=== PATIENT | male | born 1955 | race Caucasian/White ===

== ENCOUNTER → 2017-08-20 07:02 | Outpatient (CLI) | payer OTHER, SELFPAY ==
[2017-08-20 08:42] LABS: Add Manual Diff / Slide Review NO; Basophils Percent Auto 0.4 % (0-2); Eosinophils Percent Auto 2.1 % (2-4); Hemoglobin 15.3 g/dL (13.5-17.5); Lymphocytes Percent Auto 34.1 % (25-40); Mean Corpuscular HGB Conc 33.2 % (30-36); Mean Corpuscular Hemoglobin 31.5 PG (26-34); Mean Corpuscular Volume 94.7 fL (80-100); Monocytes Percent Auto 9.2 % (3-14); Neutrophils Absolute Auto 3700 /uL (3000-5900); Neutrophils Percent Auto 54.2 % (50-75); Platelet Count 191 X10^3/uL (150-400); Red Blood Cell Count 4.86 X10^6/uL (4.5-5.9); Red Cell Distribution Width 14.2 % (11.6-14.8); White Blood Cell Count 6.9 X10^3/uL (4.5-11.0)
[2017-08-20 08:55] LABS: Alanine Aminotransferase 33 IU/L (21-72); Albumin 4.4 g/dL (3.5-5.0); Albumin Globulin Ratio 1.5 (1.0-2.8); Alkaline Phosphatase 61 U/L (38-126); Aspartate Aminotransferase 42 IU/L (17-59); Bilirubin Total 0.5 mg/dL (0.2-1.3); Calcium 9.4 mg/dL (8.4-10.2); Cholesterol 181 mg/dL (140-199); Estimated Glomerular Filt Rate > 60.0 mL/min (>60); Glucose 100 mg/dL (80-110); HDL Cholesterol 68 mg/dL (40-60); HEMOLYSIS < 15 (0-50); LDL Cholesterol Calculated 101 mg/dL (<100); Potassium 4.8 mmol/L (3.4-5.1); Sodium 138 mmol/L (137-145); Total Protein 7.4 g/dL (6.3-8.2); Triglycerides 58 mg/dL (35-150)
[2017-08-20 09:20] LABS: Thyroid Stimulating Hormone 2.58 uIU/mL (0.47-4.68)
== END ==
PROVIDERS: PCP Family Medicine; Visit Provider Family Medicine
DX: Z00.00 Encounter for general adult medical examination without abnormal findings (principal)
CPT/HCPCS: 36415; 80053; 80061; 84153; 84443; 85025

== ENCOUNTER 2017-12-31 12:08 | Emergency (ER) | payer OTHER, SELFPAY ==
[2017-12-31 12:15] VITALS: BP 189/86; PULSE 50; RESP 16; TEMP 36.1; O2SAT 100
--- NOTE | 2017-12-31 12:20 | DI.RAD.S_ITS ---
PROCEDURE: XR CHEST 1V INDICATIONS: chest pain, congestion TECHNIQUE: One view of the chest was acquired. COMPARISON: None. FINDINGS: Surgical changes and devices: None. Lungs and pleura: No pleural effusions or pneumothorax. Lungs are clear. Mediastinum: Mediastinal contours appear normal. Heart size is normal. Bones and chest wall: No suspicious bony lesions. Overlying soft tissues appear unremarkable. IMPRESSION: No acute disease. Dictated by: Drew Kennedy M.D. on 12/31/2017 at 13:31 Approved by: Drew Kennedy M.D. on 12/31/2017 at 13:32
[2017-12-31] MEDS: ASPIRIN 81 MG TAB 324 MG PO (12:47)
[2017-12-31] MEDS: SODIUM CHLORIDE 0.9% 1,000 ML 150 ML IV (12:47)
--- NOTE | 2017-12-31 12:51 | PC.NURSE ---
pt states he feel congested since this morning. denies pain at this time. Just sternal pressure provider aware. no new orders at this time.
[2017-12-31 13:00] VITALS: BP 153/79; PULSE 53; RESP 16; O2SAT 100
[2017-12-31 13:00] LABS: Add Manual Diff / Slide Review NO; Basophils Percent Auto 0.5 % (0-2); Eosinophils Percent Auto 1.3 % (2-4); Hematocrit 48.2 % (41-53); Hemoglobin 16.3 g/dL (13.5-17.5); Lymphocytes Percent Auto 18.3 % (25-40); Mean Corpuscular HGB Conc 33.8 % (30-36); Mean Corpuscular Volume 94.6 fL (80-100); Monocytes Percent Auto 7.9 % (3-14); Neutrophils Absolute Auto 5800 /uL (3000-5900); Platelet Count 195 X10^3/uL (150-400); Red Blood Cell Count 5.09 X10^6/uL (4.5-5.9); Red Cell Distribution Width 14.5 % (11.6-14.8); White Blood Cell Count 8.1 X10^3/uL (4.5-11.0)
--- NOTE | 2017-12-31 13:03 | ED_ITS ---
HPI - Arrhythmia/Palpitations General Chief Complaint: Arrhythmia/Palpitations Stated Complaint: IRREGULAR EKG Time Seen by Provider: 12/31/17 12:19 Source: patient and family Mode of arrival: ambulatory Limitations: no limitations History of Present Illness HPI narrative: 62-year-old male, otherwise quite healthy presents with his for the evaluation of a few months worth of anterior chest pressure. He was seen and evaluated the walk-in clinic and sent here for a more prompt evaluation. The patient has had this anterior chest pressure since October and denies any provocation, palliation or radiation. He denies any history of cardiac illness and recently returned from [place] and hiked multiple 1000 the feet daily without any worsening or change of his symptoms. Though his chest pressure has been present for quite some time what brought him in today is while checking his blood pressure he detected a few palpitations. He cannot feel the palpitations while at rest and does not notice them. He is not dizzy nor weak or lightheaded. He denies any shortness of breath, diaphoresis nor nausea or vomiting. He is completely asymptomatic right now MD complaint: palpitations Onset (ago): month(s) Duration: now resolved Severity: mild Context: occurred during rest Associated symptoms: chest pain Related Data Home Medications Medication Instructions Recorded Confirmed aspirin 81 mg PO Q DAY #0 11/06/10 12/31/17 Previous Rx's Medication Instructions Recorded metoprolol tartrate 50 mg tablet 50 mg PO BID #180 tab 10/02/17 simvastatin 10 mg tablet 10 mg PO HS #90 tab 10/02/17 tamsulosin 0.4 mg capsule 0.4 mg PO QDAY #90 cap 10/02/17 Allergies Allergy/AdvReac Type Severity Reaction Status Date / Time KAYLYNN Inhibitors Allergy Unknown COUGH Unverified 12/31/17 11:24 [KAYLYNN INHIBITORS] Review of Systems Review of Systems All systems reviewed & are unremarkable except as noted in HPI and below Constitutional Denies chills, Denies fever(s), Denies lethargy and Denies weakness Eyes Denies change in vision, Denies eye discharge, Denies irritation and Denies loss of vision ENT Ears, Nose, Mouth, and Throat: Denies change in voice, Denies neck pain and Denies sore throat Cardiovascular Denies chest pain, Denies irregular heart rhythm, Denies lightheadedness, Reports palpitations, Denies dyspnea, Denies dyspnea on exertion and Denies orthopnea Respiratory Denies cough, Denies dyspnea, Denies dyspnea on exertion and Denies wheezing Gastrointestinal Gastrointestinal: Denies abdominal pain, Denies change in bowel habits, Denies diarrhea, Denies nausea and Denies vomiting Genitourinary Denies hematuria, Denies flank pain, Denies urinary incontinence and Denies urinary urgency Musculoskeletal Denies neck pain Integumentary/Breasts Denies pruritus, Denies erythema, Denies rash and Denies wounds Neurologic Denies confusion, Denies loss of vision and Denies weakness Psychiatric Denies anxiety, Denies confusion, Denies depression, Denies homicidal ideation and Denies suicidal ideation Endocrine Reports palpitations Hematologic/Lymphatic Denies easy bruising Allergic/Immunologic Denies wheezing [facility] Medical History BPH (benign prostatic hyperplasia) (Chronic ~2013) Elevated PSA (Chronic ~2007) Hyperlipidemia (Chronic) Hypertension (Chronic ~2007) Tinnitus (Chronic ~2009) Chicken pox (Resolved) Measles (Resolved) Mumps (Resolved) Surgical History Anesthesia (Resolved) History of prostate biopsy (Resolved ~2014) Status post colonoscopy (~2006) Family History Brother Age: 69 Hypertension High cholesterol Father Hypertension Parkinson's disease Mother Hypertension Stroke Grandmother Stroke Grandfather No problems noted. Grandmother No problems noted. Social History Smoking Status: Never smoker Exam Narrative Exam Narrative: GENERAL: This is a well-nourished, well-developed patient, in mild distress. HEAD: Atraumatic. Normocephalic. No temporal or scalp tenderness. EYES: Pupils equal round and reactive. Extraocular motions intact. No scleral icterus. No injection or drainage. ENT: Nose without bleeding, purulent drainage or septal hematoma. Throat without erythema, tonsillar hypertrophy or exudate. Uvula midline. Airway patent. NECK: Trachea midline. No JVD or lymphadenopathy. Supple, nontender, no meningeal signs. CARDIOVASCULAR: Regular rate and rhythm without murmurs, gallops, or rubs. RESPIRATORY: Clear to auscultation. Breath sounds equal bilaterally. No wheezes , rales, or rhonchi. GASTROINTESTINAL: Abdomen soft, non-tender, nondistended. No hepato-splenomegaly , or palpable masses. No guarding. EXTREMITIES: No clubbing, cyanosis, or edema. No joint tenderness, effusion, or edema noted. BACK: Nontender without deformity or crepitance. No flank tenderness. NEURO: AOx3. SKIN: No rash or erythema. Initial Vital Signs Initial Vital Signs: Vital Signs Temperature 97.0 F L 12/31/17 12:15 Pulse Rate 50 L 12/31/17 12:15 Respiratory Rate 16 12/31/17 12:15 Blood Pressure 189/86 H 12/31/17 12:15 Pulse Oximetry 100 12/31/17 12:15 Scores HEART Score Heart Score history: Slightly Suspicious Heart Score EKG: Normal Heart Score Age: 45-64 years old Heart Score risk factors: No known risk factors Heart Score troponin: < or = to normal limit Heart Score Total: 1 Wells' Criteria for PE Clinical signs and symptoms of PE: No PE is #1 Dx or equally likely: No Heart rate > 100: No Immobilization at least 3 days or surg in previous 4 weeks: No History of PE or DVT: No Hemoptysis: No Malignancy w/Treatment within 6 months or palliative: No Wells' PE Score total: 0 Course Orders Ordered: ED Orders 12/31/17 12:20 XR chest 1V Stat 12/31/17 12:27 EKG-12 Lead Stat 12/31/17 12:43 Complete Blood Count AUTO DIFF Stat Comprehensive Metabolic Panel Stat Lipase Stat Troponin & CK Cardiac Panel Stat Discontinued Medications Aspirin (Aspirin Chew) 324 mg PO NOW ONE Stop: 12/31/17 12:20 Last Admin: 12/31/17 12:47 Dose: 324 mg Sodium Chloride (Normal Saline 0.9%) 1,000 mls @ 150 mls/hr IV CONT NANCY Last Infusion: 12/31/17 14:30 Dose: 0 mls/hr Admin: 12/31/17 12:47 Dose: 150 mls/hr Vital Signs - 8 hr 12/31/17 13:39 12/31/17 14:09 12/31/17 14:28 Pulse Rate 53 L 60 56 L Respiratory Rate 20 17 Blood Pressure 147/82 H Blood Pressure [Right Arm] 146/79 H 147/82 H Pulse Oximetry 100 100 100 MDM - Arrhythmia/Palpitations Lab Data Result diagrams: 12/31/17 12:43 12/31/17 12:43 Lab Results 12/31/17 12/31/17 Range/Units 12:43 12:43 WBC 8.1 (4.5-11.0) X10^3/uL RBC 5.09 (4.5-5.9) X10^6/uL Hgb 16.3 (13.5-17.5) g/dL Hct 48.2 (41-53) % MCV 94.6 (80-100) fL MCH 32.0 (26-34) PG MCHC 33.8 (30-36) % RDW 14.5 (11.6-14.8) % Plt Count 195 (150-400) X10^3/uL Neut % (Auto) 72.0 (50-75) % Lymph % (Auto) 18.3 L (25-40) % [place] % (Auto) 7.9 (3-14) % Eos % (Auto) 1.3 L (2-4) % Baso % (Auto) 0.5 (0-2) % Neut # (Auto) 5800 (3588-1546) /uL Sodium 138 (137-145) mmol/L Potassium 4.8 (3.4-5.1) mmol/L Chloride 99 (98-107) mmol/L Carbon Dioxide 27 (22-32) mmol/L BUN 15 (9-20) mg/dL Creatinine 0.90 (0.66-1.25) mg/dL Estimated GFR > 60.0 (>60) mL/min BUN/Creatinine Ratio 16.7 (6-22) Glucose 95 (80-110) mg/dL Calcium 9.4 (8.4-10.2) mg/dL Total Bilirubin 1.0 (0.2-1.3) mg/dL AST 36 (17-59) IU/L ALT 35 (21-72) IU/L Alkaline Phosphatase 64 (38-126) U/L Total Creatine Kinase 50 L (55-170) U/L CK-MB (CK-2) TNP CK-MB (CK-2) Rel Index TNP Troponin I < 0.012 (0.01-0.034) ng/mL Total Protein 7.9 (6.3-8.2) g/dL Albumin 4.9 (3.5-5.0) g/dL Globulin 3.0 (1.7-4.1) g/dL Albumin/Globulin Ratio 1.6 (1.0-2.8) Lipase 88 (23-300) U/L Discharge Plan Departure Patient Disposition: Home Clinical Impression: Palpitations Discharge Date/Time: 12/31/17 14:29 Interventions: ED Discharge Assessment Last Done: 12/31/17 14:28 Instructions: DI for Arrhythmias Activity Restrictions/Additional Instructions: *You have been diagnosed with [ mild hypertension, palpitations ] *What to do: *Take medications as directed *Follow up with your primary care provider in 2-3 days, call for an appointment. Let them know you were seen in the Emergency Department and that we ask that you be seen in follow up *Return to ER if you should have any new, worsening or concerning symptoms Prescriptions: No Action aspirin 81 mg Tablet,Delayed Release (Dr/Ec) 81 mg PO Q DAY Qty: 0 RF: 0 metoprolol tartrate 50 mg tablet 50 mg PO BID Qty: 180 RF: 3 simvastatin [Zocor] 10 mg tablet 10 mg PO HS Qty: 90 RF: 3 tamsulosin [Flomax] 0.4 mg capsule,extended release 24hr 0.4 mg PO QDAY Qty: 90 RF: 3 Referrals: Rj Naylor MD [Primary Care Provider] -
[2017-12-31 13:14] LABS: Alanine Aminotransferase 35 IU/L (21-72); Albumin 4.9 g/dL (3.5-5.0); Albumin Globulin Ratio 1.6 (1.0-2.8); Alkaline Phosphatase 64 U/L (38-126); Aspartate Aminotransferase 36 IU/L (17-59); BUN Creatinine Ratio 16.7 (6-22); Blood Urea Nitrogen 15 mg/dL (9-20); Calcium 9.4 mg/dL (8.4-10.2); Carbon Dioxide 27 mmol/L (22-32); Chloride 99 mmol/L (98-107); Creatine Kinase 50 U/L (55-170); Estimated Glomerular Filt Rate > 60.0 mL/min (>60); Glucose 95 mg/dL (80-110); HEMOLYSIS 29 (0-50); Lipase 88 U/L (23-300); Potassium 4.8 mmol/L (3.4-5.1); Sodium 138 mmol/L (137-145); Total Protein 7.9 g/dL (6.3-8.2)
[2017-12-31 13:28] LABS: Troponin I < 0.012 ng/mL (0.01-0.034)
[2017-12-31 13:39] VITALS: BP 146/79; PULSE 53; RESP 20; O2SAT 100
[2017-12-31 14:09] VITALS: BP 147/82; PULSE 60; O2SAT 100
[2017-12-31 14:28] VITALS: BP 147/82; PULSE 56; RESP 17; O2SAT 100
== END 2017-12-31 14:29 | disposition home or self-care (01) ==
PROVIDERS: Emergency Provider Emergency Medicine; Family Provider Family Medicine; PCP Family Medicine
DX: R00.2 Palpitations (principal)
CPT/HCPCS: 36591; 71045; 80053; 82550; 83690; 84484; 85025; 93005; 96360; 96361; 99283; 99285

== ENCOUNTER → 2018-01-12 08:24 | Outpatient (CLI) | payer OTHER, SELFPAY ==
--- NOTE | 2018-01-12 10:48 | DI.ECHO.S_ITS ---
Echocardiogram Report + + :Name: ZACK MALDONADO Study Date: 01/12/2018 Height: 73 in : :[facility] Exam Location: [facility] Weight: 180 lb : : Gender: Male BSA: 2.1 m2 : :: 1955 Age: 62 yrs BP: 140/80 mmHg: :Reason For Study: PALPITATIONS : :Ordering Physician: Dr. De La Rosa : :[place] Performed By: Kaylyn Gandhi : :Referring: ALFIE FIORE : + + Interpretation Summary The left ventricle is normal in size, wall thickness, and systolic function without any focal wall motion abnormalities. The ejection fraction is estimated to be 55-60%. The right ventricle is normal in size and function. There is mild prolapse of the posterior mitral valve leaflet(s). -Overall this echo shows normal bivntricular function. There is mild prolapse of the posterior mitral valve which can be the underlying cause of patient's palpitations. Procedure: A two-dimensional transthoracic echocardiogram with color flow and Doppler was performed. The study quality was technically adequate. Most of the acoustic windows were suboptimal, but the best imaging was obtained from the subcostal window. The patient was in normal sinus rhythm during the exam. Left Ventricle: The left ventricle is normal in size, wall thickness, and systolic function without any focal wall motion abnormalities. The ejection fraction is estimated to be 55-60%. Diastolic parameters suggest a relaxation abnormality of the left ventricle, consistent with probable normal filling pressures. Right Ventricle: The right ventricle is normal in size and function. TAPSE 2.6 cm. Atria: The left atrium is mildly dilated. Right atrial size is normal. There is no Doppler evidence for an interatrial shunt. Mitral Valve: The mitral valve is normal. There is prolapse of the posterior mitral valve leaflet(s). There is trace mitral regurgitation. Aortic Valve: The aortic valve is normal in structure and function. There is no aortic valve stenosis. No aortic regurgitation is present. Tricuspid Valve: The tricuspid valve is normal. There is trace tricuspid regurgitation. The right ventricular systolic pressure is estimated to be at least 23 mmHg based on an estimated right atrial pressure of 3 mm Hg. Pulmonic Valve: The pulmonic valve is not well seen, but is grossly normal. There is trace pulmonic regurgitation. Great Vessels: The aortic root is borderline dilated. The ascending aorta is at the upper limits of normal in size. The aortic arch is normal in size. The pulmonary artery is normal size. The IVC is of normal diameter and collapses greater than 50% with a sniff. This suggests a low right atrial pressure of 3 mm Hg. Pericardium/ Pleura There is no pericardial effusion. There is no pleural effusion. MMode/2D Measurements & Calculations LVIDd: 4.7 cm LVOT diam: 2.4 cm LVIDs: 2.7 cm Ao root diam: 3.9 cm FS: 41.8 % asc Aorta Diam: 3.6 cm EPSS: 0.25 cm Ao Arch Diam (Prox Trans): 2.8 cm IVSd: 0.99 cm LVPWd: 0.96 cm LV rosenthal. diameter/BSA (cm/m^2): 2.3 LV sys. diameter/BSA (cm/m^2): 1.3 LA A2 area: 24.5 cm2 RA long axis: 5.0 cm LA A4 area: 20.0 cm2 RA area: 18.4 cm2 LA length (vol): 4.7 cm RA vol: 57.4 ml LA vol: 88.9 ml RA : 27.9 ml/m2 LA vol index: 43.2 ml/m2 IVC diam: 1.5 cm RVD1 (basal): 4.0 cm RVD2 (mid): 2.9 cm TAPSE: 2.6 cm Doppler Measurements & Calculations Ao V2 max: 102.4 cm/sec LVOT Max Dickson: 83.3 cm/sec Ao V2 mean: 71.9 cm/sec LV V1 max P.8 mmHg Ao max P.2 mmHg LV V1 VTI: 18.1 cm Ao mean P.3 mmHg SVETLANA(I,D): 3.9 cm2 Ao V2 VTI: 21.1 cm SVETLANA(V,D): 3.7 cm2 sev ratio: 0.86 SVETLANA indexed to BSA (cm^2/m^2): 1.9 MV E max dickson: 72.9 cm/sec TR max dickson: 225.6 cm/sec MV A max dickson: 66.1 cm/sec TR max P.4 mmHg MV E/A: 1.1 PA V2 max: 73.2 cm/sec Med Peak E' Dickson: 7.4 cm/sec PA V2 mean: 52.2 cm/sec E/E' med: 9.8 PA mean P.2 mmHg Lat Peak E' Dickson: 9.7 cm/sec PA pr(Accel): 21.6 mmHg E/E' lat: 7.5 E/e' average: 8.7 MV dec time: 0.20 sec MV P1/2t: 60.4 msec MV P1/2t max dickson: 72.5 cm/sec MVA(P1/2t): 3.6 cm2 _ Electronically signed by: Jacob Cunningham M.D. on Reading Physician:01/12/2018 10:48 AM
== END ==
PROVIDERS: PCP Family Medicine; Visit Provider Family Medicine
DX: I34.1 Nonrheumatic mitral (valve) prolapse (principal); R00.2 Palpitations
CPT/HCPCS: 93306

== ENCOUNTER → 2018-07-20 08:17 | Outpatient (CLI) | payer OTHER, SELFPAY ==
[2018-07-20 09:30] LABS: BUN Creatinine Ratio 18.8 (6-22); Blood Urea Nitrogen 15 mg/dL (9-20); Calcium 9.6 mg/dL (8.4-10.2); Carbon Dioxide 31 mmol/L (22-32); Chloride 90 mmol/L (98-107); Estimated Glomerular Filt Rate > 60.0 mL/min (>60); Glucose 101 mg/dL (80-110); HEMOLYSIS < 15 (0-50); Sodium 132 mmol/L (137-145)
[2018-07-20 09:43] LABS: Cholesterol 167 mg/dL (140-199); HDL Cholesterol 66 mg/dL (40-60); LDL Cholesterol Calculated 88 mg/dL (<100); Triglycerides 66 mg/dL (35-150)
[2018-07-22 16:13] LABS: PSA Free % 24 % (calc) (> 25); PSA, Total 1.7 ng/mL (< 4.1)
== END ==
PROVIDERS: PCP Family Medicine; Visit Provider Family Medicine
DX: I12.9 Hypertensive chronic kidney disease with stage 1 through stage 4 chronic kidney disease, or unspecified chronic kidney disease (principal); N13.8 Other obstructive and reflux uropathy; N40.1 Benign prostatic hyperplasia with lower urinary tract symptoms
CPT/HCPCS: 36415; 80048; 80061; 84153; 84154; 84443

== ENCOUNTER → 2018-08-04 07:48 | Outpatient (CLI) | payer OTHER, SELFPAY ==
[2018-08-04 09:24] LABS: BUN Creatinine Ratio 18.8 (6-22); Blood Urea Nitrogen 15 mg/dL (9-20); Calcium 9.7 mg/dL (8.4-10.2); Carbon Dioxide 30 mmol/L (22-32); Chloride 89 mmol/L (98-107); Estimated Glomerular Filt Rate > 60.0 mL/min (>60); Glucose 101 mg/dL (80-110); HEMOLYSIS < 15 (0-50); Potassium 4.9 mmol/L (3.4-5.1); Sodium 130 mmol/L (137-145)
== END ==
PROVIDERS: Family Provider Family Medicine; PCP Family Medicine; Visit Provider Internal Medicine Cardiovascular Disease
DX: I10 Essential (primary) hypertension (principal)
CPT/HCPCS: 36415; 80048

== ENCOUNTER → 2018-09-27 10:22 | Outpatient (CLI) | payer OTHER, SELFPAY ==
[2018-09-27 11:36] LABS: BUN Creatinine Ratio 17.5 (6-22); Blood Urea Nitrogen 14 mg/dL (9-20); Calcium 9.7 mg/dL (8.4-10.2); Carbon Dioxide 30 mmol/L (22-32); Chloride 94 mmol/L (98-107); Estimated Glomerular Filt Rate > 60.0 mL/min (>60); Glucose 97 mg/dL (80-110); HEMOLYSIS 15 (0-50); Magnesium 2.1 mg/dL (1.6-2.3); Potassium 4.6 mmol/L (3.4-5.1); Sodium 133 mmol/L (137-145)
[2018-09-27 12:36] LABS: Thyroid Stimulating Hormone 1.06 uIU/mL (0.47-4.68)
== END ==
PROVIDERS: Family Provider Family Medicine; PCP Family Medicine; Visit Provider Internal Medicine Cardiovascular Disease
DX: I10 Essential (primary) hypertension (principal); R00.2 Palpitations
CPT/HCPCS: 36415; 80048; 83735; 84443

== ENCOUNTER 2018-11-18 01:54 | Emergency (ER) | payer OTHER, SELFPAY ==
[2018-11-18 02:00] VITALS: BP 166/89; PULSE 57; RESP 18; TEMP 36.1; O2SAT 98; BMI 24.4
--- NOTE | 2018-11-18 02:05 | ED_ITS ---
HPI - Chest Pain General Chief Complaint: Chest Pain Stated Complaint: HBP/ Left rib pain Time Seen by Provider: 11/18/18 01:58 Source: patient Mode of arrival: ambulatory Limitations: no limitations History of Present Illness HPI narrative: 63-year-old male here for evaluation of pinpoint left-sided chest pain. Patient states that it started soon after he woke up prior to arrival. He states that it did not wake him up. He actually had a nightmare which woke him up and then the pain started afterwards. He states that was on the left side of his chest. It [facility] Not worse with palpation or movement or breathing. He stated that he did have a cardiac workup to include an echocardiogram and a stress test in March of this year. He does have a history of high blood pressure and is taking medications for that. Related Data Home Medications Medication Instructions Recorded Confirmed aspirin 81 mg PO Q DAY #0 11/06/10 08/11/18 potassium chloride ER 10 mEq 10 meq PO DAILY 05/24/18 08/11/18 capsule,extended release chlorthalidone 25 mg tablet 12.5 mg PO DAILY tab 08/11/18 08/11/18 Previous Rx's Medication Instructions Recorded varicella-zoster glycoE [id number] 0.5 ml IM ONCE #1 each 08/11/18 adj(PF) 50 mcg/0.5 mL IM susp, kit simvastatin 10 mg tablet 10 mg PO HS #90 tab 10/11/18 tamsulosin 0.4 mg capsule 0.4 mg PO QDAY #90 cap 10/11/18 metoprolol tartrate 50 mg tablet 75 mg PO BID #270 tab 11/11/18 Allergies Allergy/AdvReac Type Severity Reaction Status Date / Time KAYLYNN Inhibitors Allergy Unknown COUGH Verified 08/11/18 09:30 [KAYLYNN INHIBITORS] Review of Systems Constitutional Denies fever(s) Cardiovascular Reports chest pain and Denies dyspnea Respiratory Denies dyspnea Gastrointestinal Gastrointestinal: Denies abdominal pain, Denies nausea and Denies vomiting Musculoskeletal Denies myalgias and Denies arthralgias Integumentary/Breasts Denies rash Neurologic Denies behavioral changes Psychiatric Denies behavioral changes Hematologic/Lymphatic Denies easy bleeding and Denies easy bruising [facility] Medical History BPH (benign prostatic hyperplasia) (Chronic ~2013) Elevated PSA (Chronic ~2007) Hyperlipidemia (Chronic) Hypertension (Chronic ~2007) Tinnitus (Chronic ~2009) Chicken pox (Resolved) Measles (Resolved) Mumps (Resolved) Social History Smoking Status: Never smoker Exam Initial Vital Signs Initial Vital Signs: Vital Signs Temperature 97 F L 11/18/18 02:00 Pulse Rate 57 L 11/18/18 02:00 Respiratory Rate 18 11/18/18 02:00 Blood Pressure 166/89 H 11/18/18 02:00 Pulse Oximetry 98 11/18/18 02:00 Const General: cooperative, comfortable and well developed Orientation: alert, awake and oriented x3 HENMT Head: normal to inspection and normocephalic Resp Effort & Inspection: normal respiratory effort Auscultation: clear to auscultation bilaterally Cardio Rate: regular rate Rhythm: regular rhythm Skin Lesions: no lesions Rashes: no rashes Neuro General: alert and awake Cognition: normal cognition Speech: speech normal Extrem General: normal to inspection and capillary refill normal Psych Appearance: grossly normal and well kempt Scores HEART Score Heart Score history: Slightly Suspicious Heart Score EKG: Normal Heart Score Age: 45-64 years old Heart Score risk factors: 1-2 risk factors Heart Score troponin: < or = to normal limit Heart Score Total: 2 Course Orders Ordered: ED Orders 11/18/18 02:07 XR chest 1V Stat EKG-12 Lead Stat 11/18/18 02:15 Basic Metabolic Panel Stat Complete Blood Count AUTO DIFF Stat Troponin I Stat 11/18/18 04:00 Troponin I Stat Vital Signs - 8 hr 11/18/18 02:00 11/18/18 02:40 11/18/18 04:02 Temperature 97 F L Pulse Rate 57 L 56 L 54 L Respiratory Rate 18 18 16 Blood Pressure 166/89 H Blood Pressure [Right Arm] 149/78 H 135/75 Pulse Oximetry 98 98 98 MDM - Chest Pain Lab Data Attestation: I reviewed the patient's lab results. Result diagrams: 11/18/18 02:15 11/18/18 02:15 Lab Results 11/18/18 11/18/18 11/18/18 Range/Units 02:15 02:15 04:00 WBC 8.1 (4.5-11.0) X10^3/uL RBC 4.55 (4.5-5.9) X10^6/uL Hgb 14.7 (13.5-17.5) g/dL Hct 42.1 (41-53) % MCV 92.5 (80-100) fL MCH 32.3 (26-34) PG MCHC 34.9 (30-36) % RDW 13.8 (11.6-14.8) % Plt Count 218 (150-400) X10^3/uL Neut % (Auto) 56.3 (50-75) % Lymph % (Auto) 30.6 (25-40) % [place] % (Auto) 9.3 (3-14) % Eos % (Auto) 3.2 (2-4) % Baso % (Auto) 0.6 (0-2) % Neut # (Auto) 4600 (4887-0268) /uL Lymph # (Auto) 2500 (4537-1132) /uL [place] # (Auto) 800 (0-900) /uL Eos # (Auto) 300 (0-450) /uL Baso # (Auto) 100 (0-100) /uL Sodium 130 L (137-145) mmol/L Potassium 3.9 (3.4-5.1) mmol/L Chloride 89 L (98-107) mmol/L Carbon Dioxide 28 (22-32) mmol/L BUN 18 (9-20) mg/dL Creatinine 0.80 (0.66-1.25) mg/dL Estimated GFR > 60.0 (>60) mL/min BUN/Creatinine Ratio 22.5 H (6-22) Glucose 94 (80-110) mg/dL Calcium 8.9 (8.4-10.2) mg/dL Troponin I < 0.012 < 0.012 (0.01-0.034) ng/mL Imaging Data Chest x-ray: Attestation: I personally reviewed and interpreted this imaging study as follows: My impression: No pneumonia, no pneumothorax, no acute pathology ECG Data Attestation: I personally reviewed and interpreted this ECG as follows: Interpretation: Sinus bradycardia Ventricular rate of 56 Normal axis Normal QRS Normal QTC Early repolarization MDM Narrative Medical decision making narrative: Patient with pinpoint left-sided chest pain. he did not have it at the time of my evaluation. His EKG has early repolarization. He is a fairly skinny individual in does exercise. Troponins were negative x2. Heart score of 2. Had a negative workup to include echocardiogram and stress test earlier this year. I do not have the results of these tests this is per patient report. Low suspicion for ACS. Discussed return precautions and follow-up instructions. Patient expressed understanding and agreement with plan. Discharge Plan Departure Patient Disposition: Home Clinical Impression: Atypical chest pain, Chest wall pain Instructions: DI for Atypical Chest Pain Activity Restrictions/Additional Instructions: Continue all of your medications as directed. Contact your primary doctor for a follow-up. Return to the emergency department for any new or worsening symptoms Prescriptions: No Action aspirin 81 mg Tablet,Delayed Release (Dr/Ec) 81 mg PO Q DAY Qty: 0 RF: 0 potassium chloride 10 mEq capsule, extended release 10 meq PO DAILY RF: 0 chlorthalidone 25 mg tablet 12.5 mg PO DAILY RF: 0 simvastatin [Zocor] 10 mg tablet 10 mg PO HS Qty: 90 RF: 3 tamsulosin [Flomax] 0.4 mg capsule 0.4 mg PO QDAY Qty: 90 RF: 3 metoprolol tartrate 50 mg tablet 75 mg PO BID Qty: 270 RF: 0 Shingrix (PF) 50 mcg/0.5 mL suspension for reconstitution 0.5 ml IM ONCE Qty: 1 RF: 0 Referrals: Rj Naylor MD [Primary Care Provider] -
--- NOTE | 2018-11-18 02:07 | DI.RAD.S_ITS ---
PROCEDURE: XR CHEST 1V INDICATIONS: Chest pain TECHNIQUE: One view of the chest was acquired. COMPARISON: [facility], CR, XR CHEST 1V, 12/31/2017, 12:36. FINDINGS: Surgical changes and devices: None. Lungs and pleura: Lungs are clear. No pleural effusions or pneumothorax. Mediastinum: Mediastinal contours appear normal. Heart size is normal. Bones and chest wall: No suspicious bony lesions. Overlying soft tissues appear unremarkable. IMPRESSION: Normal for age, source of chest pain is not found. Dictated by: Alan Li M.D. on 11/18/2018 at 7:33 Approved by: Alan Li M.D. on 11/18/2018 at 7:33
[2018-11-18 02:29] LABS: Add Manual Diff / Slide Review NO; Basophils Absolute Auto 100 /uL (0-100); Basophils Percent Auto 0.6 % (0-2); Eosinophils Absolute Auto 300 /uL (0-450); Eosinophils Percent Auto 3.2 % (2-4); Hematocrit 42.1 % (41-53); Hemoglobin 14.7 g/dL (13.5-17.5); Lymphocytes Absolute Auto 2500 /uL (1100-4500); Lymphocytes Percent Auto 30.6 % (25-40); Mean Corpuscular HGB Conc 34.9 % (30-36); Mean Corpuscular Hemoglobin 32.3 PG (26-34); Mean Corpuscular Volume 92.5 fL (80-100); Monocytes Absolute Auto 800 /uL (0-900); Monocytes Percent Auto 9.3 % (3-14); Neutrophils Absolute Auto 4600 /uL (1500-7000); Neutrophils Percent Auto 56.3 % (50-75); Platelet Count 218 X10^3/uL (150-400); Red Blood Cell Count 4.55 X10^6/uL (4.5-5.9); Red Cell Distribution Width 13.8 % (11.6-14.8); White Blood Cell Count 8.1 X10^3/uL (4.5-11.0)
[2018-11-18 02:36] LABS: BUN Creatinine Ratio 22.5 (6-22); Blood Urea Nitrogen 18 mg/dL (9-20); Calcium 8.9 mg/dL (8.4-10.2); Carbon Dioxide 28 mmol/L (22-32); Chloride 89 mmol/L (98-107); Estimated Glomerular Filt Rate > 60.0 mL/min (>60); Glucose 94 mg/dL (80-110); HEMOLYSIS 19 (0-50); Potassium 3.9 mmol/L (3.4-5.1); Sodium 130 mmol/L (137-145)
[2018-11-18 02:40] VITALS: BP 149/78; PULSE 56; RESP 18; O2SAT 98
[2018-11-18 02:48] LABS: Troponin I < 0.012 ng/mL (0.01-0.034)
[2018-11-18 04:02] VITALS: BP 135/75; PULSE 54; RESP 16; O2SAT 98
[2018-11-18 04:27] LABS: Troponin I < 0.012 ng/mL (0.01-0.034)
== END 2018-11-18 04:40 | disposition home or self-care (01) ==
PROVIDERS: Emergency Provider Emergency Medicine; Family Provider Family Medicine; PCP Family Medicine
DX: R07.89 Other chest pain (principal)
CPT/HCPCS: 36415; 36591; 71045; 80048; 84484; 85025; 93005; 99282; 99285

== ENCOUNTER → 2019-09-29 15:59 | Outpatient (CLI) | payer MEDICARE, OTHER, SELFPAY ==
--- NOTE | 2019-09-29 16:12 | DI.ECHO.S_ITS ---
Echocardiogram Report + + :Name: ZACK MALDONADO Study Date: 09/29/2019 Height: 73 in : :[facility] Weight: 190 lb : : Gender: Male BSA: 2.1 m2 : :: 1955 Age: 64 yrs BP: 132/63 mmHg: :Reason For Study: Premature atrial depolarization : :Ordering Physician: MARGUERITE, : :JACQUELINE Performed By: Ana Rosa Arnold : :Referring: JACQUELINE EVERETT : + + Interpretation Summary The patient was in normal sinus rhythm during the exam. The patient had frequent PACs during the exam. The left ventricle is normal in size and wall thickness. Left ventricular ejection fraction is estimated to be 55 +/- 5%. Significant LV dyssynchrony during PACs otherwise no obvious regional wall motion abnormalities. The right ventricle is normal in size and function. No significant valvular pathology seen. No obvious mitral valve prolapse seen as mentioned last time. The IVC is of normal diameter and collapses greater than 50% with a sniff. This suggests a low right atrial pressure of 3 mm Hg. Procedure: A two-dimensional transthoracic echocardiogram with color flow and Doppler was performed. The study quality was technically adequate. The patient had frequent PACs during the exam. The heart rate ranged between 52-60 bpm during the study. The patient was in normal sinus rhythm during the exam. Left Ventricle: The left ventricle is normal in size and wall thickness. There is no thrombus. Left ventricular ejection fraction is estimated to be 55 +/- 5%. Significant LV dyssynchrony during PACs otherwise no obvious regional wall motion abnormalities. Diastolic parameters suggest a relaxation abnormality of the left ventricle, consistent with probable normal filling pressures. Right Ventricle: The right ventricle is normal in size and function. Atria: Both atria are normal in size. The left atrium has mildly decreased in size since the prior echo exam. There is no Doppler evidence for an interatrial shunt. Mitral Valve: The mitral valve is normal. There is systolic anterior motion of the chordal apparatus. Redundant elongated chordae are noted. There is trace mitral regurgitation. Aortic Valve: The aortic valve is trileaflet. The aortic valve opens well. There is no aortic valve stenosis. No aortic regurgitation is present. Tricuspid Valve: The tricuspid valve is normal in structure and function. The right ventricular systolic pressure is estimated to be at least 17 mmHg based on an estimated right atrial pressure of 3 mm Hg. There is trace tricuspid regurgitation. Pulmonic Valve: The pulmonic valve is not well seen, but is grossly normal. There is trace pulmonic regurgitation. Great Vessels: The aortic root is normal size. The dimensions of the ascending aorta are normal. The IVC is of normal diameter and collapses greater than 50% with a sniff. This suggests a low right atrial pressure of 3 mm Hg. Pericardium/ Pleura There is no pericardial effusion. There has been no significant change since the previous study. MMode/2D Measurements & Calculations LVIDd: 4.7 cm LVOT diam: 2.1 cm LVIDs: 3.5 cm Ao root diam: 3.1 cm FS: 26.3 % asc Aorta Diam: 3.3 cm EPSS: 0.63 cm Ao Arch Diam (Prox Trans): 3.3 cm IVSd: 0.75 cm LVPWd: 0.71 cm LV rosenthal. diameter/BSA (cm/m^2): 2.2 LV sys. diameter/BSA (cm/m^2): 1.7 LA A2 area: 19.5 cm2 RA long axis: 5.1 cm LA A4 area: 19.6 cm2 RA area: 15.9 cm2 LA length (vol): 4.9 cm RA vol: 42.1 ml LA vol: 65.9 ml RA : 20.0 ml/m2 LA vol index: 31.3 ml/m2 IVC diam: 1.1 cm RVD1 (basal): 3.6 cm TAPSE: 1.8 cm Doppler Measurements & Calculations Ao V2 max: 88.0 cm/sec LVOT Max Dickson: 71.7 cm/sec Ao V2 mean: 64.2 cm/sec LV V1 max P.1 mmHg Ao max P.1 mmHg LV V1 VTI: 15.8 cm Ao mean P.9 mmHg SVETLANA(I,D): 2.5 cm2 Ao V2 VTI: 21.5 cm SVETLANA(V,D): 2.7 cm2 sev ratio: 0.73 SVETLANA indexed to BSA (cm^2/m^2): 1.2 MV E max dickson: 55.7 cm/sec TR max dickson: 183.4 cm/sec MV A max dickson: 69.2 cm/sec TR max P.5 mmHg MV E/A: 0.81 PA V2 max: 69.8 cm/sec Med Peak E' Dickson: 4.3 cm/sec PA V2 mean: 45.5 cm/sec E/E' med: 13.0 PA mean P.93 mmHg Lat Peak E' Dickson: 7.5 cm/sec PA pr(Accel): 19.9 mmHg E/E' lat: 7.4 E/e' average: 10.2 MV dec time: 0.27 sec [facility] 52.9 ml Reading Physician:12:21 PM
== END ==
PROVIDERS: Family Provider Family Medicine; PCP Family Medicine; Referring Provider Internal Medicine Cardiovascular Disease; Visit Provider Internal Medicine Cardiovascular Disease
DX: I49.1 Atrial premature depolarization (principal); I34.1 Nonrheumatic mitral (valve) prolapse
CPT/HCPCS: 93306

== ENCOUNTER → 2019-10-26 07:08 | Outpatient (CLI) | payer MEDICARE, OTHER, SELFPAY ==
[2019-10-26 07:53] LABS: Add Manual Diff / Slide Review NO; Basophils Absolute Auto 0 /uL (0-100); Basophils Percent Auto 0.5 % (0-2); Eosinophils Absolute Auto 300 /uL (0-450); Eosinophils Percent Auto 4.4 % (2-4); Hematocrit 44.7 % (41-53); Hemoglobin 15.1 g/dL (13.5-17.5); Lymphocytes Absolute Auto 1700 /uL (1100-4500); Lymphocytes Percent Auto 26.6 % (25-40); Mean Corpuscular HGB Conc 33.8 % (30-36); Mean Corpuscular Volume 94.9 fL (80-100); Monocytes Absolute Auto 600 /uL (0-900); Monocytes Percent Auto 9.7 % (3-14); Neutrophils Absolute Auto 3700 /uL (1500-7000); Neutrophils Percent Auto 58.8 % (50-75); Platelet Count 193 X10^3/uL (150-400); Red Blood Cell Count 4.72 X10^6/uL (4.5-5.9); Red Cell Distribution Width 14.6 % (11.6-14.8); White Blood Cell Count 6.4 X10^3/uL (4.5-11.0)
[2019-10-26 08:10] LABS: Cholesterol 171 mg/dL (140-199); HDL Cholesterol 77 mg/dL (40-60); LDL Cholesterol Calculated 82 mg/dL (<100); Triglycerides 61 mg/dL (35-150)
[2019-10-26 08:34] LABS: Thyroid Stimulating Hormone 2.17 uIU/mL (0.47-4.68)
[2019-10-26 08:39] LABS: Prostate Specific Antigen Scrn 4.76 ng/mL (0.1-4.0)
== END ==
PROVIDERS: Family Provider Family Medicine; PCP Family Medicine; Referring Provider Family Medicine; Visit Provider Family Medicine
DX: I10 Essential (primary) hypertension (principal); E78.2 Mixed hyperlipidemia; N13.8 Other obstructive and reflux uropathy; N40.1 Benign prostatic hyperplasia with lower urinary tract symptoms; Z12.5 Encounter for screening for malignant neoplasm of prostate
CPT/HCPCS: 36415; 80061; 84443; 85025; G0103

== ENCOUNTER → 2020-09-12 07:06 | Outpatient (CLI) | payer MEDICARE, OTHER, SELFPAY ==
[2020-09-12 09:04] LABS: Alanine Aminotransferase 23 IU/L (<50); Albumin 4.2 g/dL (3.5-5.0); Albumin Globulin Ratio 1.6 (1.0-2.8); Alkaline Phosphatase 57 U/L (38-126); Aspartate Aminotransferase 33 IU/L (17-59); Bilirubin Total 0.9 mg/dL (0.2-1.3); Blood Urea Nitrogen 17 mg/dL (9-20); Calcium 9.6 mg/dL (8.4-10.2); Carbon Dioxide 29 mmol/L (22-32); Chloride 93 mmol/L (98-107); Cholesterol 157 mg/dL (140-199); Estimated Glomerular Filt Rate > 60.0 mL/min (>60); Globulin 2.6 g/dL (1.7-4.1); Glucose 93 mg/dL (80-110); HDL Cholesterol 64 mg/dL (40-60); HEMOLYSIS < 15 (0-50); LDL Cholesterol Calculated 81 mg/dL (<100); Potassium 4.6 mmol/L (3.4-5.1); Sodium 130 mmol/L (137-145); Total Protein 6.8 g/dL (6.3-8.2); Triglycerides 60 mg/dL (35-150)
[2020-09-12 09:30] LABS: Prostate Specific Antigen 7.05 ng/mL (0.10-4.00)
== END ==
PROVIDERS: Family Provider Family Medicine; PCP Internal Medicine; Referring Provider Internal Medicine; Visit Provider Internal Medicine
DX: E78.2 Mixed hyperlipidemia (principal); R97.20 Elevated prostate specific antigen [PSA]; I10 Essential (primary) hypertension
CPT/HCPCS: 36415; 80053; 80061; 84153

== ENCOUNTER → 2021-10-14 08:11 | Outpatient (CLI) | payer MEDICARE, OTHER, SELFPAY ==
[2021-10-14 10:57] LABS: Alanine Aminotransferase 24 IU/L (<50); Albumin 4.4 g/dL (3.5-5.0); Albumin Globulin Ratio 1.8 (1.0-2.8); Alkaline Phosphatase 58 U/L (38-126); Aspartate Aminotransferase 33 IU/L (17-59); BUN Creatinine Ratio 19.3 (6-22); Bilirubin Total 0.8 mg/dL (0.2-1.3); Blood Urea Nitrogen 16 mg/dL (9-20); Calcium 9.2 mg/dL (8.4-10.2); Carbon Dioxide 31 mmol/L (22-32); Chloride 93 mmol/L (98-107); Cholesterol 183 mg/dL (140-199); Estimated Glomerular Filt Rate > 60 mL/min (>60); Globulin 2.5 g/dL (1.7-4.1); Glucose 90 mg/dL (80-110); HDL Cholesterol 70 mg/dL (40-60); HEMOLYSIS < 15 (0-50); LDL Cholesterol Calculated 102 mg/dL (<100); Potassium 4.7 mmol/L (3.4-5.1); Sodium 130 mmol/L (137-145); Total Protein 6.9 g/dL (6.3-8.2); Triglycerides 56 mg/dL (35-150)
[2021-10-14 11:27] LABS: Prostate Specific Antigen 5.04 ng/mL (0.10-4.00)
== END ==
PROVIDERS: Family Provider Family Medicine; PCP Internal Medicine; Referring Provider Internal Medicine; Visit Provider Internal Medicine
DX: R97.20 Elevated prostate specific antigen [PSA] (principal); I10 Essential (primary) hypertension; E78.2 Mixed hyperlipidemia
CPT/HCPCS: 36415; 80053; 80061; 84153

== ENCOUNTER → 2022-10-10 06:58 | Outpatient (CLI) | payer MEDICARE, OTHER, SELFPAY ==
[2022-10-10 08:29] LABS: Alanine Aminotransferase 32 IU/L (<50); Albumin 3.9 g/dL (3.5-5.0); Albumin Globulin Ratio 1.6 (1.0-2.8); Alkaline Phosphatase 65 U/L (38-126); Aspartate Aminotransferase 34 IU/L (17-59); BUN Creatinine Ratio 21.2 (6-22); Bilirubin Total 0.4 mg/dL (0.2-1.3); Blood Urea Nitrogen 18 mg/dL (9-20); Calcium 9.1 mg/dL (8.4-10.2); Carbon Dioxide 34 mmol/L (22-32); Chloride 93 mmol/L (98-107); Cholesterol 180 mg/dL (140-199); Estimated Glomerular Filt Rate > 60 mL/min (>60); Globulin 2.5 g/dL (1.7-4.1); Glucose 99 mg/dL (80-110); HDL Cholesterol 61 mg/dL (40-60); HEMOLYSIS < 15 (0-50); LDL Cholesterol Calculated 100 mg/dL (<100); Potassium 4.1 mmol/L (3.4-5.1); Sodium 132 mmol/L (137-145); Total Protein 6.4 g/dL (6.3-8.2); Triglycerides 94 mg/dL (35-150)
[2022-10-10 09:00] LABS: Prostate Specific Antigen 9.96 ng/mL (0.10-4.00)
== END ==
PROVIDERS: Family Provider Family Medicine; PCP Internal Medicine; Referring Provider Internal Medicine; Visit Provider Internal Medicine
DX: E78.2 Mixed hyperlipidemia (principal); R97.20 Elevated prostate specific antigen [PSA]; I10 Essential (primary) hypertension
CPT/HCPCS: 36415; 80053; 80061; 84153

== ENCOUNTER → 2022-10-17 09:59 | Outpatient (CLI) | payer MEDICARE, OTHER, SELFPAY ==
[2022-10-18 08:47] LABS: PSA Free % 20.4 % (.); PSA, Total 9.7 ng/mL (0.0-4.0)
== END ==
PROVIDERS: Family Provider Family Medicine; PCP Internal Medicine; Referring Provider Internal Medicine; Visit Provider Internal Medicine
DX: R97.20 Elevated prostate specific antigen [PSA] (principal)
CPT/HCPCS: 36415; 84153; 84154

== ENCOUNTER → 2022-12-31 15:01 | Outpatient (CLI) | payer MEDICARE, OTHER, SELFPAY ==
--- NOTE | 2022-12-31 15:02 | DI.MRI.S_ITS ---
PROCEDURE: MR PELIS WO/W CON INDICATIONS: BPH w/LUTS, Elevated PSA TECHNIQUE: Coronal HASTE, axial T1 FSE with fat saturation, 3-plane nonbreath-hold T2 FSE. After the administration of contrast, dynamic axial, delayed axial and coronal VIBE or 2-D FLASH with fat saturation through the pelvis. Optional diffusion weighted imaging and ADC may be performed. COMPARISON: None. FINDINGS: Image quality: Diffusion weighted and dynamic contrast enhanced images are diagnostic. Prostate: Gland size is 6.8 x 6.1 x 5.3 cm; ellipsoid gland volume is 114 mL. Numerous BPH nodules. Median lobe hypertrophy which extends into the urinary bladder. There is intrinsic T1 hyperintense signal in the left transitional zone apex to mid consistent with prostate hemorrhage. Lesion size(s): Lesion 1: 0.9 x 0.8 cm, (07/16) Lesion location(s) (sector): Lesion 1: Left paramedian transitional zone apex Lesion description: Lesion 1: Oval T2 weighted imaging (T2WI) morphology score: Lesion 1: 3 Diffusion weighted imaging (DWI) morphology score: Lesion 1: 3 Dynamic contrast enhancement (DCE): Lesion 1: Present Lesion PI-RADS score: Lesion 1: PI-RADS 3 Genitourinary system: Bladder wall thickness is normal. Distal ureters are non distended. Bowel and peritoneum: No pathologic free pelvic fluid. Inferior colon and small bowel loops are normal in caliber. Nodes and vessels: No pelvic or inguinal adenopathy by size criteria. Iliac vessels are normal in caliber. Soft tissues: No inguinal hernias. Bones: Marrow demonstrates normal overall signal, without lesions to suggest metastases. IMPRESSION: 1. Marked prostatomegaly with numerous BPH nodules. Median lobe hypertrophy. 2. Left apex transitional zone observation measuring 0.9 cm. PI-RADS 3. 3. No enlarged lymph nodes. Dictated by: Cristiano Bell M.D. on 01/01/2023 at 9:52 Approved by: Cristiano Bell M.D. on 01/01/2023 at 10:08
== END ==
PROVIDERS: Family Provider Family Medicine; PCP Internal Medicine; Referring Provider Specialist; Visit Provider Specialist
DX: N40.1 Benign prostatic hyperplasia with lower urinary tract symptoms (principal); N13.8 Other obstructive and reflux uropathy; R97.20 Elevated prostate specific antigen [PSA]; Z80.42 Family history of malignant neoplasm of prostate
CPT/HCPCS: 72197

== ENCOUNTER → 2023-08-14 07:55 | Outpatient (CLI) | payer MEDICARE, OTHER, SELFPAY ==
[2023-08-18 07:36] LABS: PSA Free % 25.3 % (.)
== END ==
PROVIDERS: Family Provider Family Medicine; PCP Internal Medicine; Referring Provider Specialist; Visit Provider Specialist
DX: R97.20 Elevated prostate specific antigen [PSA] (principal); Z80.42 Family history of malignant neoplasm of prostate
CPT/HCPCS: 36415; 84153; 84154

== ENCOUNTER → 2023-12-02 07:10 | Outpatient (CLI) | payer MEDICARE, OTHER, SELFPAY ==
[2023-12-02 08:31] LABS: Alanine Aminotransferase 26 IU/L (<50); Albumin 4.3 g/dL (3.5-5.0); Albumin Globulin Ratio 1.7 (1.0-2.8); Alkaline Phosphatase 68 U/L (38-126); Aspartate Aminotransferase 31 IU/L (17-59); Blood Urea Nitrogen 22 mg/dL (9-20); Calcium 9.6 mg/dL (8.4-10.2); Carbon Dioxide 29 mmol/L (22-32); Chloride 96 mmol/L (98-107); Cholesterol 190 mg/dL (140-199); Estimated Glomerular Filt Rate > 60 mL/min (>60); Globulin 2.5 g/dL (1.7-4.1); Glucose 101 mg/dL (80-110); HDL Cholesterol 82 mg/dL (40-60); HEMOLYSIS < 15 (0-50); LDL Cholesterol Calculated 91 mg/dL (<100); Magnesium 2.4 mg/dL (1.6-2.3); Potassium 4.3 mmol/L (3.4-5.1); Sodium 132 mmol/L (137-145); Total Protein 6.8 g/dL (6.3-8.2); Triglycerides 85 mg/dL (35-150)
== END ==
PROVIDERS: Family Provider Family Medicine; PCP Internal Medicine; Referring Provider Internal Medicine; Visit Provider Internal Medicine
DX: I10 Essential (primary) hypertension (principal); E78.2 Mixed hyperlipidemia
CPT/HCPCS: 36415; 80053; 80061; 83735

== ENCOUNTER → 2024-09-13 09:46 | Outpatient (CLI) | payer MEDICARE, OTHER, SELFPAY ==
[2024-09-13 11:16] LABS: Prostate Specific Antigen 8.54 ng/mL (0.10-4.00)
== END ==
PROVIDERS: Family Provider Family Medicine; PCP Internal Medicine; Referring Provider Urology; Visit Provider Urology
DX: R97.20 Elevated prostate specific antigen [PSA] (principal)
CPT/HCPCS: 36415; 84153